=== PATIENT | male | born 1995 | race African-American/Black ===

== ENCOUNTER 2017-04-04 09:57 | Emergency (ER) | payer SELFPAY ==
[2017-04-04 11:23] LABS: ALT (SGPT) 35 U/L (8-55); AST (SGOT) 24 U/L (5-34); Albumin 3.7 g/dL (3.5-5.0); Alkaline Phosphatase 94 U/L (40-150); Anion Gap 16 mmol/L (10-20); BUN (Urea Nitrogen) 8 mg/dL (8.9-20.6); Bilirubin, Total 0.3 mg/dL (0.2-1.2); Calc. Creatinine Clearance 0 mL/min (70-130); Calcium 8.7 mg/dL (7.8-10.44); Carbon Dioxide 22 mmol/L (22-29); Chloride 106 mmol/L (98-107); Estimated GFR-MDRD Greater than 90; Globulin 2.4 g/dL (2.4-3.5); Glucose 87 mg/dL (70-105); Potassium 4.1 mmol/L (3.5-5.1); Protein, Total 6.1 g/dL (6.0-8.3); Sodium 140 mmol/L (136-145)
[2017-04-04 11:27] LABS: Band 7 % (5-11); Eosinophils 2 % (0-10); Hemoglobin 13.2 g/dL (14.0-18.0); Mean Corpuscular HGB CONC 32.8 g/dL (32.0-36.0); Mean Corpuscular Hemoglobin 29.4 pg (27.0-31.0); Mean Corpuscular Volume 89.8 fl (80.0-94.0); Mean Platelet Volume 6.9 fL (7.4-10.4); Metamyelocyte 4 % (0-0); Monocytes 6 % (0-10); Neutrophil 51 % (42-75); Platelet Count 247 thou/uL (130-400); RBC Distribution Width 13.5 % (11.5-14.5); Red Blood Cell (RBC) Count 4.49 mill/uL (4.70-6.10); White Blood Cell (WBC) Count 7.3 thou/uL (4.8-10.8)
[2017-04-04 11:28] LABS: Lymphocytes 30 % (21-51)
== END 2017-04-04 11:07 | disposition left against medical advice (07) ==
LOC: MADERS 09:57
DX: R60.0 Localized edema (principal); E11.9 Type 2 diabetes mellitus without complications
CPT/HCPCS: 36415; 80053; 83880; 85025; 85379; 93005

== ENCOUNTER 2018-10-01 00:25 | Emergency (ER) | payer SELFPAY ==
[2018-10-01] MEDS ORDERED: Ondansetron ODT 4 MG TAB ONE (01:09)
[2018-10-01] MEDS ORDERED: Sodium Chloride 0.9% 250 ML 250 ML ONE (02:17)
[2018-10-01] MEDS ORDERED: Sodium Chloride Irrig Solution 250 ML BOT ONE (07:11)
--- NOTE | 2018-10-01 07:38 | CT ---
HEAD CT NONCONTRAST: Date: 10/01/18 INDICATION: Post-traumatic pain. FINDINGS: There is no acute intracranial hemorrhage, mass effect, midline shift, or ventriculomegaly. There is mild scattered paranasal sinus mucosal thickening. Calvarium is intact. IMPRESSION: No acute intracranial hemorrhage or mass effect. POS: [facility]
== END 2018-10-01 02:10 | disposition home or self-care (01) ==
LOC: MADERS 00:25
DX: S06.0X1A Concussion with loss of consciousness of 30 minutes or less, initial encounter (principal); S01.81XA Laceration without foreign body of other part of head, initial encounter; F17.210 Nicotine dependence, cigarettes, uncomplicated; Y00.XXXA Assault by blunt object, initial encounter
CPT/HCPCS: 70450; J7050; Q0162